=== PATIENT | female | born 1965 | race Caucasian/White ===

== ENCOUNTER 2024-05-31 19:59 | Emergency (ER) | payer MEDICAID, SELFPAY ==
[2024-05-31 19:59] VITALS: BMI 30.7
[2024-05-31 20:10] VITALS: BP 125/83; PULSE 97; RESP 18; TEMP 36.3; O2SAT 97
--- NOTE | 2024-05-31 20:32 | PD.EDFMALE ---
ED Female Urogenital RME/HPI General Chief complaint: Urogenital-Female Stated complaint: UTI Time Seen by Provider: 05/31/24 20:28 Arrival date/time: 05/31/24 19:59 59F with no significant PMH presents to ED with 1 day of dysuria. Patient denies fevers/chills and flank pain. Limitations: no limitations Related Data Home Medications ?Medication ?Instructions ?Recorded ?Confirmed ibuprofen 800 mg tablet 800 mg PO PRN PRN PAIN ##60 03/10/16 07/30/19 omeprazole 20 mg tablet,delayed 20 mg PO QDAY ##56 03/10/16 07/30/19 release topiramate 25 mg tablet 50 mg PO BID ##45 03/10/16 07/30/19 Previous Rx's ?Medication ?Instructions ?Recorded efzuezkpdz-obqyyqpcdclrs-doijkhbk 1 cap PO TID PRN headache #30 caps 03/12/19 50 mg-300 mg-40 mg capsule (Fioricet) albuterol sulfate 90 mcg/actuation 2 puff inhalation Q4H PRN 07/30/19 aerosol inhaler shortness of breath #8.5 grams ibuprofen 800 mg tablet 800 mg PO TID PRN pain #30 tabs 07/30/19 promethazine-DM 6.25 mg-15 mg/5 mL 10 ml PO Q6H PRN cough #120 mL 07/30/19 oral syrup acetaminophen 500 mg tablet 500 - 1,000 mg (1 - 2 x 500 mg) PO 09/29/19 (Tylenol Extra Strength) Q4H #30 tabs guaifenesin 400 mg tablet 400 mg PO Q6H #20 tabs 09/29/19 phenylephrine HCl 10 mg tablet 10 mg PO Q6H #20 tabs 09/29/19 azithromycin 500 mg tablet See Rx Instructions PO .COMPLEX #6 07/20/20 tabs cyclobenzaprine 10 mg tablet 10 mg PO TID PRN muscle spasm #14 09/22/22 tabs ibuprofen 800 mg tablet 800 mg PO TID PRN pain #30 tabs 11/17/22 cefuroxime axetil 500 mg tablet 500 mg PO BID 7 days #14 tabs 05/31/24 Allergies Allergy/AdvReac Type Severity Reaction Status Date / Time aspirin Allergy Intermediate ABD PAIN & Verified 05/31/24 20:01 VOMITING sulfamethoxazole Allergy Mild WAS TOLD Verified 05/31/24 20:01 SHE COULDN'T TAKE IT ANYMORE, UNKNOWN REASON trimethoprim Allergy Mild WAS TOLD Verified 05/31/24 20:01 SHE COULDN'T TAKE IT ANYMORE, UNKNOWN REASON alcohol Allergy Verified 05/31/24 20:01 Review of Systems Review of Systems Systems Reviewed: All systems reviewed, normal except as documented Constitutional Constitutional: Reports system reviewed and no additional complaints, except as documented, Denies fever(s) and Denies headache(s) ENT Ears, Nose, Mouth, and Throat: Denies disequilibrium and Denies headache(s) Cardiovascular Cardiovascular: Reports system reviewed and no additional complaints, except as documented, Denies chest pain and Denies dyspnea Respiratory Respiratory: Reports system reviewed and no additional complaints, except as documented, Denies cough and Denies dyspnea Gastrointestinal Gastrointestinal: Reports system reviewed and no additional complaints, except as documented, Denies abdominal pain, Denies nausea and Denies vomiting Genitourinary Genitourinary: Reports as per HPI and Reports dysuria Neurologic Neurologic: Reports system reviewed and no additional complaints, except as documented, Denies confusion, Denies disequilibrium and Denies headache(s) Psychiatric Psychiatric: Denies confusion Past Medical History Past Medical History NEUROLOGIC: Positive Neurological Disorders and Migraine; Negative Seizures CARDIAC: Positive Hypertension; Negative Cardiac Disorders or Congestive Heart Failure RESPIRATORY: Negative Chronic Obstructive Pulmonary Disease (COPD) GASTROINTESTINAL: Positive Gastrointestinal Disorders and Gastroesophageal Reflux Disease GENITOURINARY: Negative Genitourinary Disorders or Renal Disease REPRODUCTIVE: Positive Previous Pregnancies MUSCULOSKELETAL: Positive Musculoskeletal Disorders, Arthritis, Scoliosis and Fractures ENDOCRINE: Negative Endocrine Disorders, Diabetes Mellitus Type 1 or Diabetes Mellitus Type 2 HEMATOLOGIC: Positive Anemia; Negative Blood Disorders OTHER HISTORY: Positive Chicken Pox; Negative Hospitalization, Autoimmune Disease, Shingles, Falls, Blood Transfusions, Blood Transfusion Reaction, Anesthesia Reactions, Chemotherapy, Radiation Therapy, MRSA or Cancer Family History FAMILY HISTORY: Positive Family Cardiac Disorders and Family Surgery; Negative Family Psychiatric Problems, Family Respiratory Disorders, Family Gastrointestinal Problems, Family Cancer or Family Anesthesia Reaction Surgical History SURGICAL: Negative Cardiac Surgery or Abdominal Surgery Social History SMOKING STATUS: Current every day smoker ED Exam General Limitations: Present no limitations General appearance: Present alert and in no apparent distress Head Head exam: Present atraumatic Eye Eye exam: Present normal appearance, PERRL and EOMI ENT ENT exam: Present normal exam, normal oropharynx and mucous membranes moist Neck Neck exam: Present normal inspection, full ROM and trachea midline Chest Chest inspection: Present normal inspection and symmetric chest wall rise Respiratory Respiratory exam: Present normal lung sounds bilaterally Cardiovascular Cardiovascular exam: Present regular rate, normal rhythm and normal heart sounds Abdominal Exam Abdominal exam: Present soft and normal bowel sounds Extremities Exam Extremities exam: Present normal inspection and full ROM Back Exam Back exam: Present normal inspection and full ROM Neurological Exam Neurological exam: Present alert, oriented X3 and CN II-XII intact Psychiatric Psychiatric exam: Present normal affect and normal mood Skin Skin exam: Present warm, dry, intact and normal color Course Quality Measures none Orders Category Date Time Status Urinalysis, C/S if Indicated Stat Lab 05/31/24 20:50 Completed Urine Culture Stat Lab 05/31/24 20:50 Received cefTRIAXone [Rocephin] 1,000 mg Med 05/31/24 21:26 Discontinued Lidocaine 1% 20 ml [Xylocaine 1% 20 ML] 2.1 ml IM X1 Vital Signs Vital signs: Vital Signs Temperature 97.4 F 05/31/24 20:10 Pulse Rate 97 05/31/24 20:10 Respiratory Rate 18 05/31/24 20:10 Blood Pressure 125/83 05/31/24 20:10 Pulse Oximetry (%) 97 05/31/24 20:10 Oxygen Delivery Method Room Air 05/31/24 20:10 O2 at 97% on RA and WNLs Urogenital - Female MDM Narrative MDM Narrative:: 59F with no significant PMH presents to ED with 1 day of dysuria. Patient denies fevers/chills and flank pain. Physical exam reveals no flank tenderness. Patient is afebrile, calm, and alert. UA suggests UTI. Patient data External records reviewed:: [facility] previous records Clinical information provided by:: patient Social determinants that could affect healthcare access:: none Patient has the following chronic illnesses:: none How is presenting disease/condition affected by chronic disease/condition?: no chronic disease Evaluation data The following diagnostics were reviewed and interpreted by me:: radiology exam(s) Lab and/or radiology exams considered but not ordered:: ordered Interpretation Summary: above Medications / Prescriptions Medications or Prescriptions considered but not ordered:: ordered Medication administrations:: Medication Administration History Discontinued Medications Ceftriaxone Sodium 1,000 mg/ (Lidocaine HCl 2.1 ml) 0 mg IM X1 ONE Stop: 05/31/24 21:27 above Consultations Consultation(s) initiated? (list below): No Diagnosis Urogenital Female Differential Diagnosis: urinary tract infection, bacterial vaginosis, trichomoniasis, cervicitis, ovarian cyst, vaginitis, ruptured ovarian cyst, cyst of Bartholin's gland, cystitis and dysmenorrhea Most likely diagnosis given after review of the tests above:: UTI Admission Indicated Admission indicated?: not indicated Admission Request Was there a request for admission?: No Disposition Plan Disposition Plan: Discharge Discharge Attestation Discharge Attestation: The patient and all family members were given an opportunity to ask questions and understood the discharge instructions. Discharge instructions specifically effects, indications for sooner follow up or return to the emergency department, and the expected course of current diagnosis. Patient condition: Stable Discharge Plan Plan Patient Disposition: HOME (Self Care) Disposition Comment: Stable Prescriptions/Referrals Prescriptions/Med Rec: New cefuroxime axetil 500 mg tablet 500 mg PO BID 7 Days Qty: 14 0RF No Action ibuprofen 800 MG tablet 800 mg PO PRN PRN (Reason: PAIN) Qty: 60 topiramate 25 MG tablet 50 mg PO BID Qty: 45 omeprazole 20 MG tablet,delayed release (DR/EC) 20 mg PO QDAY Qty: 56 fculnzcwbe-nowrobimyoyrk-eoih [Fioricet] 50-300-40 mg capsule 1 cap PO TID PRN (Reason: headache ) Qty: 30 0RF guaifenesin 400 mg tablet 400 mg PO Q6H Qty: 20 0RF phenylephrine HCl 10 mg tablet 10 mg PO Q6H Qty: 20 0RF acetaminophen [Tylenol Extra Strength] 500 mg tablet 500 - 1,000 mg PO Q4H Qty: 30 0RF azithromycin 500 mg tablet See Rx Instructions .ROUTE .COMPLEX Qty: 6 0RF Rx Instructions: take 500 mg today (day 1), then 250 mg for 4 days (days 2-5) promethazine-DM 6.25-15 mg/5 mL syrup 10 ml PO Q6H PRN (Reason: cough) Qty: 120 0RF ibuprofen 800 mg tablet 800 mg PO TID PRN (Reason: pain) Qty: 30 0RF albuterol sulfate 90 mcg/actuation HFA aerosol inhaler 2 puff INH Q4H PRN (Reason: shortness of breath) Qty: 8.5 0RF cyclobenzaprine 10 mg tablet 10 mg PO TID PRN (Reason: muscle spasm) Qty: 14 0RF ibuprofen 800 mg tablet 800 mg PO TID PRN (Reason: pain) Qty: 30 0RF Referrals: Krista Sterling PA-C [Primary Care Provider] - In 1 week Problem List Clinical Impression: UTI (urinary tract infection) Patient/Caregiver Discharge Instructions Additional Instructions: Please follow-up with PCP within 24-48 hours and return immediately if symptoms worsen. Print Language: Guyanese Stand Alone Forms: Patient Portal Info Letter PA/FELT HOOKER Supervising Physician PA/HEMALATHA Supervising Physician: Dr. Field
[2024-05-31 21:02] LABS: Collection Type, Urine Clean Catch
[2024-05-31 21:14] LABS: Bacteria,Urine 1+; Bilirubin,Urine Negative (Negative); Blood,Urine 3+ (Negative); Clarity,Urine Turbid (Clear/Hazy); Color,Urine Drk-Yellow (Lt Yel-Yel); Glucose, Urine Negative (Negative); Ketones,Urine Negative (Negative); Leukocyte Esterase,Urine Positive (Negative); Nitrite,Urine Negative (Negative); Protein,Urine 1+ (Neg - Trace); RBC,Urine 21 /hpf (0-3); Specific Gravity,Urine 1.008 (1.001-1.035); Squamous Epithelial Cell,Urine 5 /hpf (0-5); Urobilinogen,Urine Negative mg/dL (0.0-1.0); WBC,Urine 455 /hpf (0-5)
[2024-05-31 21:24] LABS: Culture Indicated,Urine Yes
[2024-05-31] MEDS: cefTRIAXone 1,000 MG, LIDOCAINE 1% 20 ML 2.1 ML IM (21:33)
== END 2024-05-31 21:42 | disposition home or self-care (01) ==
PROVIDERS: Physician Assistant; Emergency Provider Emergency Medicine; PCP Physician Assistant
DX: N39.0 Urinary tract infection, site not specified (principal)
CPT/HCPCS: 81001; 87077; 87086; 87186; 96372; 99283; J0696; J3490

== ENCOUNTER 2024-06-23 18:42 | Emergency (ER) | payer MEDICAID, SELFPAY ==
[2024-06-23 18:43] VITALS: BMI 31.3
[2024-06-23 19:04] VITALS: BP 139/94; PULSE 89; RESP 17; TEMP 36.5; O2SAT 97
--- NOTE | 2024-06-23 19:09 | XR_ITS ---
Examination: Abdomen sonogram, Limited Date and time of exam: June 23, 20242006 hrs. Indications: Onset severe right upper abdominal pain today Technique: Real-time stallings scale transabdominal sonographic images of the upper abdomen obtained. Findings: Gallbladder sludge Negative for gallstones Gallbladder wall 0.1 cm Common bile duct 0.2 cm Pancreatic head 2.9 cm Liver 14.2 cm lobular contour fatty infiltration no focal liver lesions Normal hepatopedal portal venous flow Patent IVC Impression: Negative for cholelithiasis, negative for cholecystitis Fatty liver, suspect primary hepatocellular disease
--- NOTE | 2024-06-23 19:10 | PD.EDRME ---
Rapid Medical Screening Exam RME Arrival date/time: 06/23/24 18:42 59-year-old female with past medical history of hypertension presents emergency department complaining of right upper quadrant abdominal pain that worsens with inspiration and started earlier today. Chief Complaint: Abdominal Pain Time Seen by Provider: 06/23/24 19:07 Vital signs: Vital Signs Temperature 97.7 F 06/23/24 19:04 Pulse Rate 89 06/23/24 19:04 Respiratory Rate 17 06/23/24 19:04 Blood Pressure 139/94 H 06/23/24 19:04 Pulse Oximetry (%) 97 06/23/24 19:04 Oxygen Delivery Method Room Air 06/23/24 19:04 Vital signs reviewed by provider: Yes
[2024-06-23 19:33] LABS: Collection Type, Urine Clean Catch; RBC,Urine 0 /hpf (0-3)
[2024-06-23 19:37] LABS: Basophils % (Auto) 0 % (0-2.5); Eosinophils # (Auto) 0.3 Thou/mm3 (0.0-0.5); Eosinophils % (Auto) 4 % (0-10); Hemoglobin 14.9 g/dL (12.0-16.0); Immature Granulocytes % (Auto) 0 % (0-0); Immature Granulocytes Auto 0.01 Thou/mm3 (0.00-0.00); Lymphocytes # (Auto) 2.3 Thou/mm3 (1.0-4.8); Lymphocytes % (Auto) 31 % (10-50); Mean Corpuscular HGB Conc 34.7 g/dl (31.0-37.0); Mean Corpuscular Hemoglobin 29.3 pg (25.0-35.0); Mean Corpuscular Volume 85 fL (80-100); Monocytes # (Auto) 0.5 Thou/mm3 (0.0-0.8); Monocytes % (Auto) 7 % (0-12); Neutrophils # (Auto) 4.3 Thou/mm3 (1.8-7.7); Neutrophils % (Auto) 58 % (37-80); Nucleated Red Blood Cell % 0 /100 WBC (0); Platelet Count 293 Thou/mm3 (140-440); RDW Standard Deviation 36.2 fL (36.4-46.3); Red Blood Count 5.09 Miln/mm3 (4.00-5.20); White Blood Count 7.4 Thou/mm3 (3.6-11.0)
[2024-06-23 19:45] LABS: Bilirubin,Urine Negative (Negative); Blood,Urine Negative (Negative); Clarity,Urine Clear (Clear/Hazy); Color,Urine Lt-Yellow (Lt Yel-Yel); Culture Indicated,Urine Not Indicated; Glucose, Urine Negative (Negative); Ketones,Urine Negative (Negative); Leukocyte Esterase,Urine Positive (Negative); Nitrite,Urine Negative (Negative); PH,Urine 7.5 (5.0-7.0); Protein,Urine Negative (Neg - Trace); Specific Gravity,Urine 1.012 (1.001-1.035); Squamous Epithelial Cell,Urine 5 /hpf (0-5); Urobilinogen,Urine Negative mg/dL (0.0-1.0); WBC,Urine 4 /hpf (0-5)
[2024-06-23 19:47] LABS: Alanine Aminotransferase 30 U/L (10-49); Albumin/Globulin Ratio 2.2 (1.2-2.2); Alkaline Phosphatase 77 U/L (46-116); Anion Gap 7 (7-16); Aspartate Amino Transferase 19 U/L (0-34); BUN/Creatinine Ratio 12 Ratio (12-20); Bilirubin,Total 0.9 mg/dL (0.3-1.2); Blood Urea Nitrogen 11 mg/dL (9-23); Calcium 10.1 mg/dL (8.3-10.6); Calcium (Corrected) 10.1 mg/dL (8.5-10.1); Carbon Dioxide 30.2 mMol/L (20.0-31.0); Chloride 104 mMol/L (98-107); Creatinine (Component) 0.9 mg/dL (0.6-1.3); Estimated Creatinine Clearance 77.1 mL/min (>60); Globulin 2.3 gm/dL (2.3-3.5); Glucose 93 mg/dL (74-106); Lipase 49 U/L (12-53); Osmolality,Calculated 280 (275-295); Potassium 3.5 mMol/L (3.4-5.1); Sodium 141 mMol/L (136-145); Total Protein 7.3 gm/dL (5.7-8.2); eGFR > 60 See Note
--- NOTE | 2024-06-23 23:19 | EDNOTE_ITS ---
<Statement entered by Florencia Lainez MD - 07/03/24 11:49> As co-signing physician, I was present and available for consult prn. I concur with the plan and care as documented by the midlevel provider. ED Abdominal Pain RME/HPI General Chief Complaint: Abdominal Pain Stated complaint: RIGHT ABD PAIN TODAY x 40 MINUTES Time seen by provider: 06/23/24 19:07 Arrival date/time: 06/23/24 18:42 59-year-old female with past medical history of hypertension presents emergency department complaining of right upper quadrant abdominal pain that worsens with inspiration and started earlier today. Limitations: no limitations RME / HPI RME / HPI narrative: 06/23/24 18:42 59-year-old female with past medical history of hypertension presents emergency department complaining of right upper quadrant abdominal pain that worsens with inspiration and started earlier today. Related Data Home Medications ?Medication ?Instructions ?Recorded ?Confirmed ibuprofen 800 mg tablet 800 mg PO PRN PRN PAIN ##60 03/10/16 07/30/19 omeprazole 20 mg tablet,delayed 20 mg PO QDAY ##56 03/10/16 07/30/19 release topiramate 25 mg tablet 50 mg PO BID ##45 03/10/16 07/30/19 Previous Rx's ?Medication ?Instructions ?Recorded rzwhjrhudx-bkxfmzdsovkdz-jgvzixqg 1 cap PO TID PRN headache #30 caps 03/12/19 50 mg-300 mg-40 mg capsule (Fioricet) albuterol sulfate 90 mcg/actuation 2 puff inhalation Q4H PRN 07/30/19 aerosol inhaler shortness of breath #8.5 grams ibuprofen 800 mg tablet 800 mg PO TID PRN pain #30 tabs 07/30/19 promethazine-DM 6.25 mg-15 mg/5 mL 10 ml PO Q6H PRN cough #120 mL 07/30/19 oral syrup acetaminophen 500 mg tablet 500 - 1,000 mg (1 - 2 x 500 mg) PO 09/29/19 (Tylenol Extra Strength) Q4H #30 tabs guaifenesin 400 mg tablet 400 mg PO Q6H #20 tabs 09/29/19 phenylephrine HCl 10 mg tablet 10 mg PO Q6H #20 tabs 09/29/19 azithromycin 500 mg tablet See Rx Instructions PO .COMPLEX #6 07/20/20 tabs cyclobenzaprine 10 mg tablet 10 mg PO TID PRN muscle spasm #14 09/22/22 tabs ibuprofen 800 mg tablet 800 mg PO TID PRN pain #30 tabs 11/17/22 Allergies Allergy/AdvReac Type Severity Reaction Status Date / Time aspirin Allergy Severe ABD PAIN & Verified 06/23/24 18:46 VOMITING cefuroxime Allergy Severe Vomiting Verified 06/23/24 18:48 isopropyl alcohol Allergy Severe Fainting Verified 06/23/24 18:46 sulfamethoxazole Allergy Severe WAS TOLD Verified 06/23/24 18:46 SHE COULDN'T TAKE IT ANYMORE, UNKNOWN REASON trimethoprim Allergy Severe WAS TOLD Verified 06/23/24 18:46 SHE COULDN'T TAKE IT ANYMORE, UNKNOWN REASON Review of Systems Review of Systems Systems Reviewed: All systems reviewed, normal except as documented Constitutional Constitutional: Reports system reviewed and no additional complaints, except as documented, Denies body ache(s), Denies chills and Denies fever(s) Eyes Eyes: Reports system reviewed and no additional complaints, except as documented and Denies change in vision ENT Ears, Nose, Mouth, and Throat: Reports system reviewed and no additional complaints, except as documented, Denies disequilibrium, Denies dizziness, Denies sore throat and Denies vertigo Cardiovascular Cardiovascular: Reports system reviewed and no additional complaints, except as documented, Denies chest pain and Denies dyspnea Respiratory Respiratory: Reports system reviewed and no additional complaints, except as documented, Denies chest congestion, Denies cough and Denies dyspnea Gastrointestinal Gastrointestinal: Reports system reviewed and no additional complaints, except as documented, Reports abdominal pain, Denies nausea and Denies vomiting Musculoskeletal Musculoskeletal: Reports system reviewed and no additional complaints, except as documented, Denies abnormal gait and Denies arthralgias Integumentary/Breasts Skin/Breast: Reports system reviewed and no additional complaints, except as documented, Denies erythema, Denies rash and Denies wounds Neurologic Neurologic: Reports system reviewed and no additional complaints, except as documented, Denies abnormal gait, Denies disequilibrium, Denies dizziness and Denies vertigo Past Medical History Past Medical History NEUROLOGIC: Positive Neurological Disorders and Migraine; Negative Seizures CARDIAC: Positive Hypertension; Negative Cardiac Disorders or Congestive Heart Failure RESPIRATORY: Negative Chronic Obstructive Pulmonary Disease (COPD) GASTROINTESTINAL: Positive Gastrointestinal Disorders and Gastroesophageal Reflux Disease GENITOURINARY: Negative Genitourinary Disorders or Renal Disease REPRODUCTIVE: Positive Previous Pregnancies MUSCULOSKELETAL: Positive Musculoskeletal Disorders, Arthritis, Scoliosis and Fractures ENDOCRINE: Negative Endocrine Disorders, Diabetes Mellitus Type 1 or Diabetes Mellitus Type 2 HEMATOLOGIC: Positive Anemia; Negative Blood Disorders OTHER HISTORY: Positive Chicken Pox; Negative Hospitalization, Autoimmune Disease, Shingles, Falls, Blood Transfusions, Blood Transfusion Reaction, Anesthesia Reactions, Chemotherapy, Radiation Therapy, MRSA or Cancer Family History FAMILY HISTORY: Positive Family Cardiac Disorders and Family Surgery; Negative Family Psychiatric Problems, Family Respiratory Disorders, Family Gastrointestinal Problems, Family Cancer or Family Anesthesia Reaction Surgical History SURGICAL: Negative Cardiac Surgery or Abdominal Surgery Social History SMOKING STATUS: Heavy (> 1 pack/day) ED Exam General Limitations: Present no limitations General appearance: Present alert and in no apparent distress Head Head exam: Present atraumatic Eye Eye exam: Present normal appearance, PERRL and EOMI ENT ENT exam: Present normal exam, normal oropharynx and mucous membranes moist Neck Neck exam: Present normal inspection, full ROM and trachea midline Chest Chest inspection: Present normal inspection and symmetric chest wall rise Respiratory Respiratory exam: Present normal lung sounds bilaterally Cardiovascular Cardiovascular exam: Present regular rate, normal rhythm and normal heart sounds Abdominal Exam Abdominal exam: Present soft, tenderness and normal bowel sounds Abdominal tenderness: Present RUQ Extremities Exam Extremities exam: Present normal inspection and full ROM Back Exam Back exam: Present normal inspection and full ROM Neurological Exam Neurological exam: Present alert, oriented X3 and CN II-XII intact Psychiatric Psychiatric exam: Present normal affect and normal mood Skin Skin exam: Present warm, dry, intact and normal color Course Quality Measures none Orders Category Date Time Status US gall bladder Stat Exams 06/23/24 19:09 Completed CBC Stat Lab 06/23/24 19:20 Completed CMP [Comprehensive Metabolic Panel] Stat Lab 06/23/24 19:20 Completed Lipase Stat Lab 06/23/24 19:20 Completed Urinalysis, C/S if Indicated Stat Lab 06/23/24 19:25 Completed HYDROcodone*/APAP 5/325 [[place] 5/325] Med 06/23/24 19:09 Discontinued 1 tab PO X1 ONE Vital Signs Vital signs: Vital Signs Temperature 97.7 F 06/23/24 19:04 Pulse Rate 89 06/23/24 19:04 Respiratory Rate 17 06/23/24 19:04 Blood Pressure 139/94 H 06/23/24 19:04 Pulse Oximetry (%) 97 06/23/24 19:04 Oxygen Delivery Method Room Air 06/23/24 19:04 97% RA WNL. Abdominal Pain MDM MDM Narrative MDM Narrative:: 59-year-old female with past medical history of hypertension presents emergency department complaining of right upper quadrant abdominal pain that worsens with inspiration and started earlier today. Lab work and US unremarkable. patient appears non toxic and is hemodynamically stable. Patient data External records reviewed:: [facility] previous records Clinical information provided by:: patient Social determinants that could affect healthcare access:: none Patient has the following chronic illnesses:: see chart How is presenting disease/condition affected by chronic disease/condition?: uneffected by Evaluation data The following diagnostics were reviewed and interpreted by me:: lab results and radiology exam(s) Lab and/or radiology exams considered but not ordered:: ordered Interpretation Summary: interpreted by me Medications / Prescriptions Medications or Prescriptions considered but not ordered:: ordered Medication administrations:: Medication Administration History Discontinued Medications Hydrocodone Bitart/Acetaminophen (Hydrocodone/Apap 5/325 Tablet) 1 tab PO X1 ONE Stop: 06/23/24 19:10 Last Admin: 06/23/24 23:35 Dose: Not Given Documented By: OA Non-Admin Reason: Patient Refused given Consultations Consultation(s) initiated? (list below): No Diagnosis Differential diagnosis abdominal pain: abdominal pain, acute appendicitis, calculus of kidney, constipation, diverticulitis, gastroenteritis, pancreatitis and small bowel obstruction Most likely diagnosis given after review of the tests above:: abdominal pain Admission Indicated Admission indicated?: not indicated Admission Request Was there a request for admission?: No Disposition Plan Disposition Plan: Discharge Discharge Attestation Discharge Attestation: The patient and all family members were given an opportunity to ask questions and understood the discharge instructions. Discharge instructions specifically effects, indications for sooner follow up or return to the emergency department, and the expected course of current diagnosis. Patient condition: Stable Discharge Plan Plan Patient Disposition: HOME (Self Care) Disposition Comment: Stable Prescriptions/Referrals Prescriptions/Med Rec: No Action ibuprofen 800 MG tablet 800 mg PO PRN PRN (Reason: PAIN) Qty: 60 topiramate 25 MG tablet 50 mg PO BID Qty: 45 omeprazole 20 MG tablet,delayed release (DR/EC) 20 mg PO QDAY Qty: 56 xpftlsxpat-bzpjivsmfbtkq-rtbn [Fioricet] 50-300-40 mg capsule 1 cap PO TID PRN (Reason: headache ) Qty: 30 0RF guaifenesin 400 mg tablet 400 mg PO Q6H Qty: 20 0RF phenylephrine HCl 10 mg tablet 10 mg PO Q6H Qty: 20 0RF acetaminophen [Tylenol Extra Strength] 500 mg tablet 500 - 1,000 mg PO Q4H Qty: 30 0RF azithromycin 500 mg tablet See Rx Instructions .ROUTE .COMPLEX Qty: 6 0RF Rx Instructions: take 500 mg today (day 1), then 250 mg for 4 days (days 2-5) promethazine-DM 6.25-15 mg/5 mL syrup 10 ml PO Q6H PRN (Reason: cough) Qty: 120 0RF ibuprofen 800 mg tablet 800 mg PO TID PRN (Reason: pain) Qty: 30 0RF albuterol sulfate 90 mcg/actuation HFA aerosol inhaler 2 puff INH Q4H PRN (Reason: shortness of breath) Qty: 8.5 0RF cyclobenzaprine 10 mg tablet 10 mg PO TID PRN (Reason: muscle spasm) Qty: 14 0RF ibuprofen 800 mg tablet 800 mg PO TID PRN (Reason: pain) Qty: 30 0RF Referrals: Krista Sterling PA-C [Primary Care Provider] - In 1 week Problem List Clinical Impression: Abdominal pain Patient/Caregiver Discharge Instructions Discharge Activity: activity as tolerated Education Materials: Abdominal Pain Additional Instructions: Take Tylenol or ibuprofen as needed for pain. Follow-up with primary care provider in 2 to 3 days. Return to emergency department for any worsening symptoms or as needed. Print Language: Grenadian Stand Alone Forms: Tiffany Award Info., Patient Portal Info Letter PA/HEMALATHA Supervising Physician PA/GEOMORPHOLOGY TEACHER Supervising Physician: Dr. Lainez
== END 2024-06-23 23:37 | disposition home or self-care (01) ==
PROVIDERS: Emergency Provider Emergency Medicine; PCP Physician Assistant
DX: R10.11 Right upper quadrant pain (principal)
CPT/HCPCS: 36415; 76705; 80053; 81001; 83690; 85025; 99284

== ENCOUNTER 2024-10-16 09:22 | Outpatient (RCR) | payer MEDICAID, SELFPAY ==
--- NOTE | 2024-10-16 10:00 | XR_ITS ---
Examination: MELVI, hepatobiliary radioisotope scan Gallbladder ejection fraction study. Date and time of exam: October 16, 2024 0927 hrs. Indications: Stabbing upper abdominal pain beginning 2 months ago Technique: 5.9 mCi of 99M Hepatolite administered. Serial imaging then obtained from immediate through 60 minutes. 1.8 mcg selective catheter Kinevac administered for gallbladder ejection fraction study. Findings: Radioisotope activity within the liver is reasonably homogenous. Gallbladder, common bile duct small bowel activity noted Impression: Gallbladder activity Abnormal gallbladder ejection fraction, 29%, normal greater than 35%
== END 2024-10-21 23:59 | disposition home or self-care (01) ==
LOC: SNUC 09:22
PROVIDERS: PCP Physician Assistant; Referring Provider Physician Assistant; Visit Provider Physician Assistant
DX: R93.2 Abnormal findings on diagnostic imaging of liver and biliary tract (principal)
CPT/HCPCS: 78227; A9537; J2805

== ENCOUNTER → 2025-06-04 | Outpatient (CLI) | payer MEDICAID, SELFPAY ==
--- NOTE | 2025-06-04 08:45 | XR_ITS ---
EXAMINATION: Ultrasound liver elastography Date and time: June 04, 2025, 0917 hours INDICATIONS: Diagnosis fatty liver years TECHNIQUE AND FINDINGS: Sonographic images liver with calculation of tissue stiffness average Liver 13.7 cm fatty infiltration no liver lesions 10 mm gallstone Normal gallbladder wall Liver tissue stiffness average 1.4 m/s mild to moderate liver fibrosis IMPRESSION: Mild to moderate liver fibrosis
== END | disposition home or self-care (01) ==
PROVIDERS: PCP Physician Assistant; Referring Provider Physician Assistant; Visit Provider Physician Assistant
DX: K74.00 Hepatic fibrosis, unspecified (principal)
CPT/HCPCS: 76981

== ENCOUNTER 2025-06-21 23:17 | Emergency (ER) | payer MEDICAID, SELFPAY ==
[2025-06-21 23:18] VITALS: BMI 33.0
[2025-06-21 23:49] VITALS: BP 134/87; PULSE 84; RESP 18; TEMP 37; O2SAT 98
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
[2025-06-22] MEDS: ACETAMINOPHEN 500 MG TABLET 1000 MG PO (00:55)
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
== END 2025-06-22 01:26 | disposition home or self-care (01) ==
PROVIDERS: Emergency Provider Emergency Medicine; PCP Physician Assistant
DX: S60.222A Contusion of left hand, initial encounter (principal); S02.2XXA Fracture of nasal bones, initial encounter for closed fracture; Y04.0XXA Assault by unarmed brawl or fight, initial encounter; Y92.59 Other trade areas as the place of occurrence of the external cause
CPT/HCPCS: 70450; 70486; 73130; 99283; A9270

== ENCOUNTER → 2025-06-25 | Outpatient (CLI) | payer MEDICAID, SELFPAY ==
--- NOTE | 2025-06-25 12:39 | XR_ITS ---
Examination: Lumbar spine, 5 views Technique: Lumbar spine AP, lateral, coned lateral lower lumbar spine, bilateral obliques 5 views Exam date and time: June 25, 2025, 1243 hours INDICATION: Low back pain radiating to the hips 3 days FINDINGS: Satisfactory alignment lumbar vertebral bodies Moderate degenerative disc disease T12-L1, L1-L2 Mild to moderate lumbar spondylosis No acute lumbar fracture IMPRESSION: Moderate degenerative disc disease T12-L1, L1-L2
== END | disposition home or self-care (01) ==
LOC: CDIM 12:13
PROVIDERS: PCP Physician Assistant; Referring Provider Chiropractor; Visit Provider Chiropractor
DX: M51.35 Other intervertebral disc degeneration, thoracolumbar region (principal); M51.360 Other intervertebral disc degeneration, lumbar region with discogenic back pain only
CPT/HCPCS: 72110